=== PATIENT | female | born 1980 | race Caucasian/White ===

== ENCOUNTER → 2016-09-18 | Outpatient (CLI) | payer OTHER ==
[~2016-09-18] MED LIST: LEVO100T PO; PREN1TAB79 PO
== END | disposition home or self-care (01) ==
LOC: LAB 08:17
PROVIDERS: ATTEND Internal Medicine
DX: E03.9 Hypothyroidism, unspecified (principal)
CPT/HCPCS: 36415; 84439; 84443

== ENCOUNTER → 2017-08-17 | Outpatient (CLI) | payer OTHER ==
[2017-08-17 14:46] LABS: MEAN CORPUSCULAR HEMOGLOBIN 30.8 pg (27.0-34.8); MEAN CORPUSCULAR HGB CONC 33.9 g/dL (32.4-35.8); MEAN PLATELET VOLUME 8.2 fL (7.4-10.4); PLATELET COUNT 231 x10^3/uL (130-400); RED BLOOD COUNT 3.96 x10^6/uL (3.82-5.3); RED CELL DISTRIBUTION WIDTH 14.3 % (9.6-15.2)
[2017-08-17 15:15] LABS: FREE T4 (FREE THYROXINE) 1.24 ng/dL (0.76-1.46); THYROID STIMULATING HORMONE 2.44 mIU/L (0.358-3.740)
[2017-08-17 15:44] LABS: MD NO
[2017-08-17 15:56] LABS: BASOPHILS # (AUTO) 0.03 x10^3/uL (0-0.1); BASOPHILS % (AUTO) 0 % (0-1); EOSINOPHILS # (AUTO) 0.06 x10^3/uL (0-0.4); EOSINOPHILS % (AUTO) 1 % (1-7); LYMPHOCYTES # (AUTO) 1.85 x10^3/uL (1-3.4); LYMPHOCYTES % (AUTO) 15 % (22-44); MONOCYTES # (AUTO) 0.61 x10^3/uL (0.2-0.8); MONOCYTES % (AUTO) 5 % (2-9); NEUTROPHILS # (AUTO) 9.51 x10^3/uL (1.8-6.8); NEUTROPHILS % (AUTO) 79 % (42-75)
== END | disposition home or self-care (01) ==
LOC: LAB 13:34
PROVIDERS: ATTEND Obstetrics & Gynecology
DX: O99.282 Endocrine, nutritional and metabolic diseases complicating pregnancy, second trimester (principal); Z13.1 Encounter for screening for diabetes mellitus; E03.9 Hypothyroidism, unspecified; Z3A.24 24 weeks gestation of pregnancy
CPT/HCPCS: 36415; 82950; 84439; 84443; 85025; 86592; 86762; 86850; 86900; 87340; 87806; G0475

== ENCOUNTER 2017-12-10 23:32 | Inpatient (IN) | payer OTHER ==
[~2017-12-10] VITALS: Ht 162.6 cm; Wt 80.0 kg
[2017-12-10] MEDS ORDERED: OXYTOCIN 10 UNITS/ML, 1ML ONE (23:42)
[2017-12-10] MEDS ORDERED: NEWBORN KIT ONE (23:42)
[2017-12-10] MEDS ORDERED: LIDOCAINE/PF 1%, 30ML ONE (23:42)
[2017-12-10] MEDS ORDERED: MISOPROSTOL 200 MCG TABLET ONE (23:43)
[2017-12-11] MEDS ORDERED: OXYTOCIN 30U/ 0.9% NaCL 500ML 500 ML IV ONE (00:03)
[2017-12-11] MEDS ORDERED: D5%-LACTATED RINGERS 1,000 ML IV SCH (00:03)
[2017-12-11] MEDS ORDERED: LACTATED RINGERS 1,000 ML IV SCH (00:03)
[2017-12-11] MEDS ORDERED: SODIUM CITRATE/CITRIC ACID 30 ML UDC PO PRN (00:30)
[2017-12-11] MEDS ORDERED: TERBUTALINE 1 MG/ML, 1ML SQ PRN (00:30)
[2017-12-11] MEDS ORDERED: FENTANYL PF 100 MCG/2ML IVPush PRN (00:30)
[2017-12-11] MEDS ORDERED: TERBUTALINE 1 MG/ML, 1ML IVPush PRN ×2 (00:30)
[2017-12-11] MEDS ORDERED: ALUMINUM/MAG/SIMETHICONE 30 ML UDC PO PRN (00:30)
[2017-12-11] MEDS ORDERED: ONDANSETRON 2MG/ML, 2ML IVPush PRN (00:30)
[2017-12-11] MEDS ORDERED: FENTANYL PF 100 MCG/2ML IV PRN (00:30)
[2017-12-11] MEDS ORDERED: CALCIUM CARBONATE 500 MG TAB.CHEW PO PRN (00:30)
[2017-12-11] MEDS ORDERED: METOCLOPRAMIDE 5 MG/ML, 2ML IVPush PRN (00:30)
[2017-12-11] MEDS: OXYTOCIN 30U/ 0.9% NaCL 500ML 500 ML IV SCH ×2 (00:45→10:45)
[2017-12-11] MEDS ORDERED: IBUPROFEN 800 MG TABLET PO PRN (01:00)
[2017-12-11] MEDS ORDERED: OXYTOCIN 10 UNITS/ML, 1ML IM PRN (01:00)
[2017-12-11] MEDS ORDERED: METHYLERGONOVINE 0.2 MG/ML IM PRN (01:00)
[2017-12-11] MEDS ORDERED: OXYcodone/APAP 5/325MG TABLET PO PRN ×2 (01:00)
[2017-12-11] MEDS ORDERED: ONDANSETRON 2MG/ML, 2ML IV PRN (01:00)
[2017-12-11] MEDS ORDERED: METOCLOPRAMIDE 5 MG/ML, 2ML IV PRN (01:00)
[2017-12-11] MEDS ORDERED: DOCUSATE 100 MG CAPSULE PO PRN (01:00)
[2017-12-11] MEDS ORDERED: ACETAMINOPHEN 325 MG TABLET PO PRN (01:00)
[2017-12-11 02:00] VITALS: BP 98/66
[2017-12-11 06:00] VITALS: BP 95/60
[2017-12-11 08:37] LABS: MEAN CORPUSCULAR HGB CONC 33.5 g/dL (32.4-35.8); MEAN CORPUSCULAR VOLUME 92.6 fL (80-100); MEAN PLATELET VOLUME 9.6 fL (7.4-10.4); PLATELET COUNT 208 x10^3/uL (130-400); RED BLOOD COUNT 4.22 x10^6/uL (3.82-5.3); RED CELL DISTRIBUTION WIDTH 14.5 % (9.6-15.2)
[2017-12-11 08:56] LABS: MD YES
[2017-12-11 08:57] LABS: BAND#(MANUAL) 0.72 x10^3/uL; BANDS%(MANUAL) 4 % (0-7); BASOS#(MANUAL) 0.18 x10^3/uL (0-0.1); BASOS% (MANUAL) 1 % (0-1); LYMPH#(MANUAL) 2.16 x10^3/uL (1-3.4); LYMPHS% (MANUAL) 12 % (22-44); MONOS#(MANUAL) 0.54 x10^3/uL (0.3-2.7); MONOS% (MANUAL) 3 % (2-9); SEGS% (MANUAL) 80 % (42-75)
[2017-12-11 08:58] LABS: <PLATELET ESTIMATE> ADEQUATE; <PLT MORPHOLOGY> NORMAL PLT MORPH; <RBC MORPHOLOGY> NORMAL; TOXIC GRAN 1+
[2017-12-11] MEDS ORDERED: PRENATAL VIT/IRON/FA 1 EACH TABLET PO SCH (09:00)
[2017-12-11 10:30] VITALS: BP 98/65
== END 2017-12-11 15:00 | disposition home or self-care (01) | DRG 807 ==
LOC: LDOP 23:32 → LDIP 23:43 → 2NW 12-11 01:56
PROVIDERS: ADMIT Obstetrics & Gynecology; ATTEND Obstetrics & Gynecology
PROC: 10E0XZZ Delivery of Products of Conception, External Approach (ICD-10-PCS; principal; 2017-12-10)
PROC: 0HQ9XZZ Repair Perineum Skin, External Approach (ICD-10-PCS; 2017-12-10)
DX: O99.284 Endocrine, nutritional and metabolic diseases complicating childbirth (principal); Z37.0 Single live birth; Z3A.42 42 weeks gestation of pregnancy; E03.9 Hypothyroidism, unspecified; O70.0 First degree perineal laceration during delivery
CPT/HCPCS: 36415; 85025; G0378

== ENCOUNTER → 2017-12-21 | Outpatient (CLI) | payer OTHER ==
[2017-12-21 17:32] LABS: FREE T4 (FREE THYROXINE) 1.54 ng/dL (0.76-1.46); THYROID STIMULATING HORMONE 0.306 mIU/L (0.358-3.740)
== END | disposition home or self-care (01) ==
LOC: LAB 16:21
PROVIDERS: ATTEND Internal Medicine
DX: E03.9 Hypothyroidism, unspecified (principal)
CPT/HCPCS: 36415; 84439; 84443

== ENCOUNTER → 2018-03-07 | Outpatient (CLI) | payer OTHER ==
[2018-03-07 11:25] LABS: FREE T4 (FREE THYROXINE) 1.16 ng/dL (0.76-1.46); THYROID STIMULATING HORMONE 0.49 mIU/L (0.358-3.740)
== END | disposition home or self-care (01) ==
LOC: LAB 10:53
PROVIDERS: ATTEND Internal Medicine
DX: E03.9 Hypothyroidism, unspecified (principal)
CPT/HCPCS: 36415; 84439; 84443; 84481

== ENCOUNTER 2018-05-26 08:38 | Emergency (ER) | payer OTHER ==
[~2018-05-26] VITALS: Ht 160 cm; Wt 80.5 kg
[2018-05-26 08:40] VITALS: BP 136/73
[2018-05-26 09:42] LABS: BASOPHILS # (AUTO) 0.05 x10^3/uL (0-0.1); BASOPHILS % (AUTO) 1 % (0-1); EOSINOPHILS # (AUTO) 0.08 x10^3/uL (0-0.4); EOSINOPHILS % (AUTO) 1 % (1-7); LYMPHOCYTES # (AUTO) 2.07 x10^3/uL (1-3.4); LYMPHOCYTES % (AUTO) 28 % (22-44); MD NO; MEAN CORPUSCULAR HEMOGLOBIN 29.7 pg (27.0-34.8); MEAN CORPUSCULAR HGB CONC 33.6 g/dL (32.4-35.8); MEAN CORPUSCULAR VOLUME 88.4 fL (80-100); MEAN PLATELET VOLUME 8.7 fL (7.4-10.4); MONOCYTES # (AUTO) 0.57 x10^3/uL (0.2-0.8); MONOCYTES % (AUTO) 8 % (2-9); NEUTROPHILS % (AUTO) 63 % (42-75); PLATELET COUNT 236 x10^3/uL (130-400)
[2018-05-26 09:46] LABS: ALBUMIN 3.9 g/dL (3.4-5.0); ANION GAP 5 mmol/L (5-15); CALCIUM 8.9 mg/dL (8.5-10.1); CHLORIDE 112 mmol/L (98-107); CREATININE 0.87 mg/dL (0.55-1.02)
--- NOTE | 2018-05-26 09:59 | NUR ---
Pt in [place] at this time.
--- NOTE | 2018-05-26 10:31 | NUR ---
Pt sitting in bed with significant other, NADN, denies needs.
--- NOTE | 2018-05-26 10:33 | NUR ---
Dr. Gomez at bedside to discuss POC.
== END 2018-05-26 10:58 | disposition home or self-care (01) ==
LOC: ED 10:56
DX: O20.0 Threatened abortion (principal)
CPT/HCPCS: 36415; 76801; 80048; 82040; 84702; 85025; 86901; 99284

== ENCOUNTER → 2019-04-28 | Outpatient (CLI) | payer OTHER ==
[2019-04-28 09:31] LABS: BASOPHILS # (AUTO) 0.01 x10^3/uL (0-0.1); BASOPHILS % (AUTO) 0 % (0-1); EOSINOPHILS % (AUTO) 2 % (1-7); LYMPHOCYTES # (AUTO) 1.98 x10^3/uL (1-3.4); LYMPHOCYTES % (AUTO) 17 % (22-44); MD NO; MEAN CORPUSCULAR HEMOGLOBIN 30.5 pg (27.0-34.8); MEAN CORPUSCULAR HGB CONC 33.3 g/dL (32.4-35.8); MEAN CORPUSCULAR VOLUME 91.5 fL (80-100); MONOCYTES # (AUTO) 0.74 x10^3/uL (0.2-0.8); MONOCYTES % (AUTO) 6 % (2-9); NEUTROPHILS # (AUTO) 8.69 x10^3/uL (1.8-6.8); NEUTROPHILS % (AUTO) 75 % (42-75); PLATELET COUNT 243 x10^3/uL (130-400); RED BLOOD COUNT 3.92 x10^6/uL (3.82-5.3); RED CELL DISTRIBUTION WIDTH 13.4 % (9.6-15.2)
== END | disposition home or self-care (01) ==
LOC: LAB 08:22
PROVIDERS: ATTEND Obstetrics & Gynecology
DX: O09.523 Supervision of elderly multigravida, third trimester (principal); Z3A.28 28 weeks gestation of pregnancy
CPT/HCPCS: 36415; 82950; 84443; 85025; 86592

== ENCOUNTER 2019-07-22 08:07 | Inpatient (IN) | payer OTHER ==
[~2019-07-22] VITALS: Ht 160 cm; Wt 92.3 kg
[2019-07-22] MEDS ORDERED: OXYTOCIN 30U/ 0.9% NaCL 500ML 500 ML IV ONE (08:12)
[2019-07-22] MEDS ORDERED: LIDOCAINE 1%, 20ML ONE (08:15)
[2019-07-22] MEDS ORDERED: LACTATED RINGERS 1,000 ML IV SCH (08:15)
[2019-07-22] MEDS ORDERED: MISOPROSTOL 200 MCG TABLET ONE (08:15)
[2019-07-22] MEDS ORDERED: D5%-LACTATED RINGERS 1,000 ML IV SCH (08:15)
[2019-07-22] MEDS ORDERED: NEWBORN KIT ONE (08:15)
[2019-07-22] MEDS ORDERED: OXYTOCIN 30U/ 0.9% NaCL 500ML 500 ML ONE (08:16)
[2019-07-22 08:28] VITALS: BP 103/70
[2019-07-22] MEDS ORDERED: ONDANSETRON 2MG/ML, 2ML IVPush PRN (08:30)
[2019-07-22] MEDS ORDERED: FENTANYL PF 100 MCG/2ML IV PRN (08:30)
[2019-07-22] MEDS ORDERED: TERBUTALINE 1 MG/ML, 1ML IVPush PRN (08:30)
[2019-07-22] MEDS ORDERED: METOCLOPRAMIDE 5 MG/ML, 2ML IVPush PRN (08:30)
[2019-07-22] MEDS ORDERED: TERBUTALINE 1 MG/ML, 1ML SQ PRN (08:30)
[2019-07-22] MEDS ORDERED: FENTANYL PF 100 MCG/2ML IVPush PRN (08:30)
[2019-07-22] MEDS ORDERED: SODIUM CITRATE/CITRIC ACID 30 ML UDC PO PRN (08:30)
[2019-07-22] MEDS: PLEASE ENTER HEIGHT AND WEIGHT MC SCH ×2 (08:30→14:11)
[2019-07-22 08:53] LABS: BASOPHILS # (AUTO) 0.03 x10^3/uL (0-0.1); BASOPHILS % (AUTO) 0 % (0-1); EOSINOPHILS # (AUTO) 0.05 x10^3/uL (0-0.4); EOSINOPHILS % (AUTO) 0 % (1-7); LYMPHOCYTES # (AUTO) 1.79 x10^3/uL (1-3.4); LYMPHOCYTES % (AUTO) 13 % (22-44); MD NO; MEAN CORPUSCULAR HEMOGLOBIN 30.7 pg (27.0-34.8); MEAN CORPUSCULAR HGB CONC 34.1 g/dL (32.4-35.8); MEAN CORPUSCULAR VOLUME 89.9 fL (80-100); MEAN PLATELET VOLUME 9.1 fL (7.4-10.4); MONOCYTES # (AUTO) 0.97 x10^3/uL (0.2-0.8); MONOCYTES % (AUTO) 7 % (2-9); NEUTROPHILS # (AUTO) 11.42 x10^3/uL (1.8-6.8); NEUTROPHILS % (AUTO) 80 % (42-75); PLATELET COUNT 197 x10^3/uL (130-400); RED BLOOD COUNT 4.13 x10^6/uL (3.82-5.3); RED CELL DISTRIBUTION WIDTH 14.3 % (9.6-15.2)
[2019-07-22] MEDS: OXYTOCIN 30U/ 0.9% NaCL 500ML 500 ML IV SCH ×2 (09:31→19:31)
[2019-07-22] MEDS ORDERED: TRANEXAMIC ACID 100 MG/ML, 10ML IV ONE (10:00)
[2019-07-22] MEDS ORDERED: OXYTOCIN 10 UNITS/ML, 1ML IM PRN (10:00)
[2019-07-22] MEDS ORDERED: DOCUSATE 100 MG CAPSULE PO PRN (10:00)
[2019-07-22] MEDS ORDERED: CARBOPROST TROMETHAMINE 250 MCG/ML, 1ML IM PRN (10:00)
[2019-07-22] MEDS ORDERED: METHYLERGONOVINE 0.2 MG/ML IM PRN (10:00)
[2019-07-22] MEDS ORDERED: ONDANSETRON 2MG/ML, 2ML IV PRN (10:00)
[2019-07-22] MEDS ORDERED: MAGNESIUM HYDROXIDE 8%, 30ML UDC PO PRN (10:00)
[2019-07-22] MEDS ORDERED: TRANEXAMIC ACID 1,000 MG in SODIUM CHLORIDE 0.9% 100 ML IVPB ONE (10:00)
[2019-07-22] MEDS ORDERED: OXYcodone IR 5MG TABLET PO PRN (10:00)
[2019-07-22] MEDS ORDERED: OXYcodone/APAP 5/325MG TABLET PO PRN (10:00)
[2019-07-22] MEDS ORDERED: ACETAMINOPHEN 325 MG TABLET PO PRN ×2 (10:00)
[2019-07-22] MEDS ORDERED: SIMETHICONE 80 MG CHEW TAB PO PRN (10:00)
[2019-07-22 11:35] VITALS: BP 108/64
[2019-07-22 13:47] VITALS: BP 110/62
[2019-07-22 17:38] LABS: BASOPHILS # (AUTO) 0.04 x10^3/uL (0-0.1); BASOPHILS % (AUTO) 0 % (0-1); EOSINOPHILS # (AUTO) 0.03 x10^3/uL (0-0.4); EOSINOPHILS % (AUTO) 0 % (1-7); LYMPHOCYTES # (AUTO) 2.09 x10^3/uL (1-3.4); LYMPHOCYTES % (AUTO) 14 % (22-44); MD NO; MEAN CORPUSCULAR HEMOGLOBIN 30.8 pg (27.0-34.8); MEAN CORPUSCULAR HGB CONC 33.8 g/dL (32.4-35.8); MEAN CORPUSCULAR VOLUME 90.9 fL (80-100); MEAN PLATELET VOLUME 9.3 fL (7.4-10.4); MONOCYTES # (AUTO) 1.07 x10^3/uL (0.2-0.8); MONOCYTES % (AUTO) 7 % (2-9); NEUTROPHILS % (AUTO) 79 % (42-75); PLATELET COUNT 213 x10^3/uL (130-400); RED BLOOD COUNT 3.91 x10^6/uL (3.82-5.3); RED CELL DISTRIBUTION WIDTH 14.4 % (9.6-15.2)
[2019-07-22 19:55] VITALS: BP 103/67
[2019-07-23 02:30] VITALS: BP 118/70
[2019-07-23] MEDS: OXYTOCIN 30U/ 0.9% NaCL 500ML 500 ML IV SCH ×2 (05:31→15:31)
[2019-07-23 08:05] VITALS: BP 122/73
[2019-07-23] MEDS: PRENATAL VIT/IRON/FA 1 EACH TABLET PO SCH (10:36)
[2019-07-23] MEDS: IBUPROFEN 800 MG TABLET PO PRN (16:52)
[2019-07-23 20:00] VITALS: BP 116/72
[2019-07-24] MEDS: IBUPROFEN 800 MG TABLET PO PRN ×2 (01:09→07:27)
[2019-07-24] MEDS: OXYTOCIN 30U/ 0.9% NaCL 500ML 500 ML IV SCH ×2 (01:31→11:31)
[2019-07-24] MEDS: PRENATAL VIT/IRON/FA 1 EACH TABLET PO SCH (07:27)
[2019-07-24 07:30] VITALS: BP 103/88
[2019-07-24] MEDS ORDERED: IBUP-1222 PO (16:14)
[2019-07-24] MEDS ORDERED: OXYC-302 PO (16:15)
== END 2019-07-24 19:03 | disposition home or self-care (01) | DRG 807 ==
LOC: LDOP 08:07 → LDIP 08:12 → 2NW 11:15
PROVIDERS: ADMIT Obstetrics & Gynecology; ATTEND Obstetrics & Gynecology
PROC: 10E0XZZ Delivery of Products of Conception, External Approach (ICD-10-PCS; principal; 2019-07-22)
DX: O48.0 Post-term pregnancy (principal); Z37.0 Single live birth; O99.283 Endocrine, nutritional and metabolic diseases complicating pregnancy, third trimester; O77.0 Labor and delivery complicated by meconium in amniotic fluid; Z3A.41 41 weeks gestation of pregnancy; Z88.0 Allergy status to penicillin; O71.82 Other specified trauma to perineum and vulva
CPT/HCPCS: 36415; 85025; 86592; 86850; 86900; G0378; J2590; J7120

== ENCOUNTER 2020-11-24 16:14 | Emergency (ER) | payer OTHER ==
[~2020-11-24] VITALS: Ht 160 cm; Wt 76.0 kg
[~2020-11-24 16:14] MED LIST changes: +IBUP-1222 PO; +OXYC1TAB12 PO
[2020-11-24 16:31] VITALS: BP 120/81
== END 2020-11-24 17:05 | disposition home or self-care (01) ==
LOC: ED 16:29
DX: R76.11 Nonspecific reaction to tuberculin skin test without active tuberculosis (principal); Z20.1 Contact with and (suspected) exposure to tuberculosis
CPT/HCPCS: 71046; 99283